=== PATIENT | female | born 1975 | race Caucasian/White ===

== ENCOUNTER 2023-11-29 10:06 | Emergency (ER) | payer OTHER, SELFPAY ==
--- NOTE | ~2023-11-29 | CT_ITS ---
EXAMINATION: CT lumbar spine wo con DATE: 11/29/2023 11:01 INDICATION: Low back pain radiating down the leg. TECHNIQUE: Computed tomography (CT) of the lumbar spine was performed without intravenous contrast. A utomated exposure control and iterative reconstruction technique were employed. The dose-length produ ct was 617.44 mGy-cm. COMPARISON: None FINDINGS: There is 3 degrees dextrocurvature of lumbar spine. Vertebral body heights are normal. Ther e is mildly decreased disc height at L3-L4. The following disc levels are specifically discussed: L1-L2: The disc does not extend beyond the endplate margin. There is mild bilateral facet joint osteo arthritis. There is no neural foraminal stenosis. There is no central canal stenosis. L2-L3: The disc does not extend beyond the endplate margins. There is severe right and mild left face t joint osteoarthritis. There is no neural foraminal stenosis. There is no central canal stenosis. L3-L4: The disc is bulging. There is moderate bilateral facet joint osteoarthritis. There is mild jossue ateral neural foraminal stenosis. There is mild central canal stenosis. L4-L5: The disc is bulging. There is moderate bilateral facet joint osteoarthritis. There is mild jossue ateral neural foraminal stenosis. There is mild central canal stenosis. L5-S1: The disc is bulging. There is severe bilateral facet joint osteoarthritis. There is mild left neural foraminal stenosis. There is mild central canal stenosis. IMPRESSION: 1. Mild lumbar spondylosis. Reviewed, dictated and finalized at location E. IMPRESSION: 1. Mild lumbar spondylosis.
[2023-11-29 10:15] VITALS: BP 169/91; PULSE 98; RESP 16; TEMP 36.7; O2SAT 98
[2023-11-29 10:31] VITALS: BP 163/87; O2SAT 99
[2023-11-29] MEDS: KETOROLAC 30 MG/ML VIAL (*BKC) IM (10:53)
[2023-11-29] MEDS: dexAMETHasone SOD PHOS INJ 10 MG/ML 1 ML VIAL IM (10:53)
[2023-11-29] MEDS: ORPHENADRINE CITRATE 100 MG TABLET.ER PO (10:53)
[2023-11-29 11:04] VITALS: BP 134/95; O2SAT 96
[2023-11-29 11:16] VITALS: BP 136/87; O2SAT 97
[2023-11-29 11:31] VITALS: BP 136/85; O2SAT 97
--- NOTE | 2023-11-29 11:32 | ED.GENADULT ---
HPI - General Adult General Chief complaint: Back Pain/Injury Stated complaint: back pain Time Seen by Provider: 11/29/23 10:25 History of Present Illness HPI narrative: the patient is a 48-year-old female who presents emergency department chief complaint of low back pain and pain radiating down her left leg. Patient denies bowel or bladder dysfunction denies footdrop reports that she feels as though she has an episode of sciatica. Patient reports that the symptoms are improved whenever she lifts her legs up reports that she still is able to walk but it just hurts patient reports no trauma no history of neoplasm Related Data Allergies Allergy/AdvReac Type Severity Reaction Status Date / Time amoxicillin Allergy Itching Verified 11/29/23 10:48 nick Allergy Rash Verified 11/29/23 10:49 povidone-iodine Allergy Rash Verified 11/29/23 10:49 [From Betadine] latex AdvReac Redness of Verified 11/29/23 10:49 Skin Review of Systems Review of Systems: A 10 system review of systems was completed on the patient and is negative except for what is stated in the HPI. Nursing and ancillary documentation was reviewed. Exam Narrative: GENERAL: Well-appearing, well-nourished, and in no acute distress. HEAD: Normocephalic, atraumatic. EYES: PERRLA and EOMI. ENT: Nares clear, no rhinorrhea or epistaxis. Mucous membranes moist. NECK: Supple. CHEST: Clear to auscultation. No respiratory distress. HEART: Regular rate and rhythm. No murmur heard. Normal peripheral pulses. ABDOMEN: Soft, nontender, nondistended, normal active bowel sounds. EXTREMITIES: Normal range of motion. No edema. SKIN: Warm, dry, no rash. NEURO: No focal deficits. Alert and oriented x3. no saddle anesthesia no footdrop PSYCH: Normal mood and affect. Course Vital Signs Vital signs: Vital Signs Temperature 36.7 C 11/29/23 10:15 Pulse Rate 98 11/29/23 10:15 Respiratory Rate 16 11/29/23 10:15 Blood Pressure 169/91 H 11/29/23 10:15 Pulse Oximetry 98 11/29/23 10:15 Oxygen Delivery Room Air 11/29/23 10:15 Temperature 36.7 C 11/29/23 10:15 Pulse Rate 98 11/29/23 10:15 Respiratory Rate 16 11/29/23 10:15 Blood Pressure 169/91 H 11/29/23 10:15 Pulse Oximetry 98 11/29/23 10:15 Oxygen Delivery Room Air 11/29/23 10:15 Medical Decision Making MDM Narrative Medical decision making narrative: differential diagnosis includes sciatica, lumbar radiculopathy, low back pain, lumbar fracture, CT scan of the lumbar spine was obtained that showed IMPRESSION: 1. Mild lumbar spondylosis. Vital Signs Vital Signs: Vital Signs Temperature 36.7 C 11/29/23 10:15 Pulse Rate 98 11/29/23 10:15 Respiratory Rate 16 11/29/23 10:15 Blood Pressure 169/91 H 11/29/23 10:15 Pulse Oximetry 98 11/29/23 10:15 Oxygen Delivery Room Air 11/29/23 10:15 Temperature 36.7 C 11/29/23 10:15 Pulse Rate 98 11/29/23 10:15 Respiratory Rate 16 11/29/23 10:15 Blood Pressure 169/91 H 11/29/23 10:15 Pulse Oximetry 98 11/29/23 10:15 Oxygen Delivery Room Air 11/29/23 10:15 Discharge Plan Discharge Clinical Impression: Sciatica Patient Disposition: Home, Self-Care Condition: Stable Instructions: Antibiotic Form, Sciatica (ED), Acute Low Back Pain (ED) Prescriptions: New cyclobenzaprine 10 mg tablet 10 mg PO TID PRN (Reason: muscle spasm) Qty: 21 0RF prednisone 20 mg tablet 40 mg PO DAILY 5 Days Qty: 10 0RF diclofenac potassium 50 mg tablet 50 mg PO TID PRN (Reason: pain) Qty: 21 0RF Follow-up/Referrals: Elvis Hall MD [Physician] - UNKNOWN,DOCTOR [Primary Care Provider] - Time of Disposition: 11:38
[2023-11-29 11:46] VITALS: BP 132/83; O2SAT 97
== END 2023-11-29 13:42 | disposition home or self-care (01) ==
PROVIDERS: Emergency Provider Emergency Medicine
DX: M54.42 Lumbago with sciatica, left side (principal); M47.816 Spondylosis without myelopathy or radiculopathy, lumbar region
CPT/HCPCS: 72131; 96372; 99284; A9270; J1100; J1885